=== PATIENT | female | born 1970 | race Caucasian/White ===

== ENCOUNTER 2016-10-14 14:11 | Emergency (ER) | payer SELFPAY ==
[~2016-10-14] VITALS: Ht 167.6 cm; Wt 110.2 kg
[2016-10-14 15:10] VITALS: BP 162/110
--- NOTE | 2016-10-14 15:31 | NUR ---
Patient returned from XRAY, transferred back to ED lobby to wait for an available bed.
--- NOTE | 2016-10-14 15:50 | NUR ---
PATIENT PRESENTS TO ED WITH C/O RIGHT KNEE PAIN . PT STATES SHE HAD A MIS-STEP 3 DAYS AGO AND HAS FELT PAIN SINCE THAT TIME . DENIES N/V/D; SKIN IS PINK/WARM/DRY; AAOX4 WITH EVEN AND STEADY GAIT; LUNGS CLEAR BL; HR EVEN AND REGULAR; PT DENIES ANY FEVER, CP, SOB, OR COUGH AT THIS TIME; PATIENT STATES PAIN OF 10/10 AT THIS TIME; VSS; PATIENT POSITIONED FOR COMFORT; HOB ELEVATED; BEDRAILS UP X2; BED DOWN. ER MD MADE AWARE OF PT STATUS.
--- NOTE | 2016-10-14 15:53 | NUR ---
Romy MICHAELS [facility]
[2016-10-14 16:07] VITALS: BP 147/90
== END 2016-10-14 16:07 | disposition home or self-care (01) ==
LOC: MED 14:11
DX: M25.561 Pain in right knee (principal)
CPT/HCPCS: 29505; 73562; 99284

== ENCOUNTER 2018-02-03 01:48 | Emergency (ER) | payer SELFPAY ==
[~2018-02-03] VITALS: Ht 167.6 cm; Wt 108.9 kg
[2018-02-03 01:55] VITALS: BP 140/75
[2018-02-03] MEDS: DICYCLOMINE HCL LIQUID 20 MG, ALUMINUM HYD/MAG/SIMETHICONE 30 ML, LIDOCAINE VISCOUS 2% ... PO ONE ×3 (02:26)
[2018-02-03 02:46] VITALS: BP 127/78
== END 2018-02-03 02:46 | disposition home or self-care (01) ==
LOC: MED 01:48
DX: R10.13 Epigastric pain (principal); R11.2 Nausea with vomiting, unspecified; R19.7 Diarrhea, unspecified
CPT/HCPCS: 81002; 81025; 99283

== ENCOUNTER 2018-07-03 16:28 | Emergency (ER) | payer SELFPAY ==
[~2018-07-03] VITALS: Ht 167.6 cm; Wt 104.3 kg
[2018-07-03 16:31] VITALS: BP 153/57
--- NOTE | 2018-07-03 16:50 | NUR ---
PT AMBULATED TO ROOM 6
--- NOTE | 2018-07-03 17:15 | NUR ---
C/O EPIGASTRIC PAIN X3 DAYS, SHARP PAIN 10/10 RADIATING TO R SIDE. DENIES N/V/D/FEVER/INJURY. BOWEL SOUNDS ACTIVE X4. LBM 07/03/2018. SKIN IS PINK/WARM/DRY; AAOX4 WITH EVEN AND STEADY GAIT; LUNGS CLEAR BL; HR EVEN AND REGULAR; VSS; PATIENT POSITIONED FOR COMFORT; HOB ELEVATED; BEDRAILS UP X1; BED DOWN. ER MD MADE AWARE OF PT STATUS.
[2018-07-03] MEDS ORDERED: DICYCLOMINE HCL LIQUID 10 MG/5 ML UDC PO ONE (17:30)
[2018-07-03] MEDS ORDERED: PANTOPRAZOLE 40 MG TABEC PO ONE (17:30)
[2018-07-03] MEDS ORDERED: ALUMINUM HYD/MAG/SIMETHICONE 30 ML UDC PO ONE (17:30)
[2018-07-03] MEDS ORDERED: LIDOCAINE VISCOUS 2% 20 ML UDC PO ONE (17:30)
[2018-07-03] MEDS ORDERED: KETOROLAC 60 MG/2 ML VIAL IM ONE (17:30)
--- NOTE | 2018-07-03 17:36 | NUR ---
PATIENT TAKEN TO [facility] IN WHEELCHAIR
--- NOTE | 2018-07-03 17:55 | NUR ---
PT RETURNED FROM CT
--- NOTE | 2018-07-03 19:02 | NUR ---
Patient discharged with v/s stable. Written and verbal after care instructions given and explained. Patient alert, oriented and verbalized understanding of instructions. Ambulatory with steady gait. All questions addressed prior to discharge. ID band removed. Patient advised to follow up with PMD. Rx of PROTONIX given. Patient educated on indication of medication including possible reaction and side effects. Opportunity to ask questions provided and answered.
[2018-07-03 19:08] VITALS: BP 104/55
== END 2018-07-03 19:02 | disposition home or self-care (01) ==
LOC: MED 16:28
DX: K29.00 Acute gastritis without bleeding (principal)
CPT/HCPCS: 74022; 81002; 81025; 96372; 99284; J1885

== ENCOUNTER 2022-03-07 12:07 | Emergency (ER) | payer OTHER ==
[~2022-03-07] VITALS: Ht 167.6 cm; Wt 104.3 kg
[2022-03-07 12:12] VITALS: BP 136/72
--- NOTE | 2022-03-07 12:18 | NUR ---
PT SENT TO LOBBY. URINE COLLECTED
[2022-03-07] MEDS ORDERED: FAMOTIDINE 20 MG TAB PO ONE (12:30)
[2022-03-07] MEDS ORDERED: ALUMINUM HYD/MAG/SIMETHICONE 30 ML UDC PO ONE (12:30)
--- NOTE | 2022-03-07 12:30 | NUR ---
51/F WALKED IN C/O 11/22 CONSTANT MID ABDOMINAL PAIN ONSET YESTERDAY ACCOMPANIED BY NAUSEA. DENIES VOMTING OR DIARRHEA. DENIES FEVER OR COUGH. AFEBRILE AT TRIAGE. AAO4, AMBULATORY, VITALS STABLE PMH: HYPERLIPIDEMIA
[2022-03-07] MEDS ORDERED: OMEP40EC24 PO (13:24)
[2022-03-07] MEDS ORDERED: MAG-27 PO (13:24)
[2022-03-07] MEDS ORDERED: ACET-10509 PO (13:24)
--- NOTE | 2022-03-07 13:25 | NUR ---
Patient discharged with v/s stable. Written and verbal after care instructions ABOUT GASTRITIS given and explained. Patient alert, oriented and verbalized understanding of instructions. Ambulatory with steady gait. All questions addressed prior to discharge. ID band removed. Patient advised to follow up with PMD. Rx of TYLENOL EXTRA STRENGTH, MYLANT AND PRILOSEC given. Patient educated on indication of medication including possible reaction and side effects. Opportunity to ask questions provided and answered.
== END 2022-03-07 13:25 | disposition home or self-care (01) ==
LOC: MED 12:07
DX: K29.70 Gastritis, unspecified, without bleeding (principal); E78.5 Hyperlipidemia, unspecified
CPT/HCPCS: 99282